=== PATIENT | male | born 1980 | race Caucasian/White ===

== ENCOUNTER 2020-02-28 16:18 | Emergency (ER) | payer BC ==
[~2020-02-28] VITALS: Ht 182.9 cm; Wt 104.3 kg
[~2020-02-28 16:18] MED LIST: DAY TIME LIQUI1 EAC1 PO
[2020-02-28] MEDS ORDERED: NORCO 7.5-3251 EACH PO (17:59)
[2020-02-28] MEDS ORDERED: ONDANSETRON ODT8 MG PO (17:59)
== END 2020-02-28 18:15 | disposition home or self-care (01) ==
LOC: ED 16:18
DX: N20.0 Calculus of kidney (principal); Z88.0 Allergy status to penicillin
CPT/HCPCS: 80053; 81001; 85025; 96361; 96374; 96375; 99284-25; J1170; J1885; J2405; J7030

== ENCOUNTER 2020-11-25 22:19 | Emergency (ER) | payer BC ==
[~2020-11-25] VITALS: Ht 182.9 cm; Wt 102.0 kg
[~2020-11-25 22:19] MED LIST changes: +NORCO 7.5-3251 EACH PO; +ONDANSETRON ODT8 MG PO
[2020-11-25] MEDS ORDERED: HYDROXYZINE PAM25 MG PO (22:41)
--- NOTE | 2020-11-26 16:28 | EKG ---
[facility] [address] [facility] [place], [place] [address] Signed Normal sinus rhythm Normal ECG No previous ECGs available Confirmed by SCOOTER SMART DO ([id number]) on 11/26/2020 4:28:28 PM Electronically Signed By: SCOOTER MSART DO 11/26/20 1628 PATIENT NAME: ELIAS MEDRANO JR Electrocardiogram DATE OF : 82 PHYSICIAN: SCOOTER SMART DO REPORT #: [id number] REPORT IS CONFIDENTIAL AND NOT TO BE RELEASED WITHOUT AUTHORIZATION
== END 2020-11-26 01:24 | disposition home or self-care (01) ==
LOC: ED 22:19
DX: R07.9 Chest pain, unspecified (principal); Z87.891 Personal history of nicotine dependence; Z88.0 Allergy status to penicillin
CPT/HCPCS: 80053; 84484; 85025; 85379; 93005; 93010; 99285-25

== ENCOUNTER 2024-12-15 22:50 | Emergency (ER) | payer OTHER ==
[~2024-12-15] VITALS: Ht 182.9 cm; Wt 104.3 kg
[~2024-12-15 22:50] MED LIST changes: +HYDROXYZINE PAM25 MG PO
[2024-12-15] MEDS ORDERED: LIDOCAINE HCL 4% 5 ML AMP INH ONE (23:30)
[2024-12-16 00:20] LABS: INFLUENZA B NAA NEGATIVE (NEGATIVE); RESPIRATORY SYNCYTIAL VIR NAA NEGATIVE (NEGATIVE)
[2024-12-16] MEDS ORDERED: ACETAMINOPHEN 325 MG TAB PO ONE (01:30)
[2024-12-16] MEDS ORDERED: IBUPROFEN 600 MG TAB PO ONE (01:30)
[2024-12-16] MEDS ORDERED: levoFLOXacin 750 MG TAB PO ONE (02:45)
[2024-12-16] MEDS ORDERED: IPRAT-ALBUT 0.5-3 ML INH (02:52)
[2024-12-16] MEDS ORDERED: PULMICORT0.5 MG/2 M INH (02:52)
[2024-12-16] MEDS ORDERED: LEVOFLOXACIN750 MG PO (02:53)
[2024-12-16] MEDS ORDERED: ALBUTEROL/IPRATROPIUM 3 ML NEB INH ONE (03:00)
[2024-12-16] MEDS ORDERED: BUDESONIDE 0.5 MG/2 ML VIAL INH ONE (03:00)
[2024-12-16 03:10] VITALS: BP 116/68
== END 2024-12-16 03:12 | disposition home or self-care (01) ==
LOC: ED 22:50
PROVIDERS: Family Medicine
DX: J18.9 Pneumonia, unspecified organism (principal); T17.590A Other foreign object in bronchus causing asphyxiation, initial encounter; W44.F9XA Other object of natural or organic material, entering into or through a natural orifice, initial encounter; Z87.891 Personal history of nicotine dependence; Z88.0 Allergy status to penicillin
CPT/HCPCS: 71250; 87502; 94640; 94667; 99284-25; A9270; U0002

== ENCOUNTER 2024-12-25 17:34 | Emergency (ER) | payer OTHER ==
[~2024-12-25] VITALS: Ht 182.9 cm; Wt 101.6 kg
[~2024-12-25 17:34] MED LIST changes: +IPRAT-ALBUT 0.5-3 ML INH; +LEVOFLOXACIN750 MG PO; +PULMICORT0.5 MG/2 M INH
--- OUTSIDE RECORDS SUMMARY | 2024-12-25 17:41 | XMS ---
PreManage Notification: ELIAS MEDRANO Security Help Desk Technician Events No recent Security Events currently on file CRITERIA MET - [facility] - 2 Visits in 30 Days CARE PROVIDERS -[place]- Dentist: Process Controller [facility] PHONE: [phone] Aubree has no Care Guidelines for this patient. EMirtha VISIT COUNT (12 MO.) [address] [place] [address] TOTAL 3 NOTE: Visits indicate total known visits. ED/C VISIT TRACKING (12 MO.) 12/25/2024 17:35 [facility] [place] TYPE: Emergency COMPLAINT: - COLD SYMPTOMS 12/15/2024 22:51 [facility] [place] TYPE: Emergency COMPLAINT: - FEVER DIAGNOSES: - Allergy status to penicillin - Cough, unspecified - Fever, unspecified - Other foreign object in bronchus causing asphyxiation, initial encounter - Other object of natural or organic material, entering into or through a natural orifice, initial encounter - Personal history of nicotine dependence - Pneumonia, unspecified organism 05/20/2024 19:54 [facility] [place] TYPE: Emergency COMPLAINT: - ANKLE INJURY DIAGNOSES: - Allergy status to penicillin - Contusion of left ankle, initial encounter - Encounter for immunization - Pain in left ankle and joints of left foot - Personal history of nicotine dependence - Striking against or struck by other objects, initial encounter INPATIENT VISIT TRACKING (12 MO.) No inpatient visits to display in this time frame [email or web address]
[2024-12-25 20:58] LABS: BASOPHILS 0.8 % (0-2); EOSINOPHILS 3.4 % (0-6); HEMATOCRIT 42.4 % (35.0-50.0); LYMPHOCYTES 30.5 % (24-44); MCH 30.1 (27-36); MCHC 35.3 g/dl (30-36); MCV 85.3 fl (81-99); MONOCYTES 9.1 % (0-12); NEUTROPHILS 56.2 % (39-80); PLATELET COUNT 254 K/uL (140-440); RBC 4.97 M/ul (4.3-5.7); RDW 13.5 (10.5-15.0)
[2024-12-25 21:14] LABS: ALBUMIN 3.5 g/dL (3.4-5.0); ALBUMIN/GLOBULIN RATIO 1.17 (1.1-2.4); ANION GAP 9.9 (7-21); BILIRUBIN, TOTAL 0.4 ng/dL (0.2-1.0); CALCIUM 9.1 mg/dL (8.5-10.1); POTASSIUM 3.9 mmol/L (3.5-5.1); PROTEIN, TOTAL 6.5 g/dL (6.4-8.2)
[2024-12-25 21:26] VITALS: BP 110/76
== END 2024-12-25 21:26 | disposition home or self-care (01) ==
LOC: ED 17:34
PROVIDERS: Internal Medicine
DX: R05.9 Cough, unspecified (principal); F41.9 Anxiety disorder, unspecified; Z87.891 Personal history of nicotine dependence; Z88.0 Allergy status to penicillin; Z79.899 Other long term (current) drug therapy
CPT/HCPCS: 36415; 71046; 80053; 85025; 85379; 99285-25